=== PATIENT | male | born 1995 ===

== ENCOUNTER 2018-03-12 12:10 | Emergency (ER) | payer BC, OTHER, SELFPAY ==
[2018-03-12] MEDS ORDERED: Ibuprofen 800 MG TAB ONE (12:36)
== END 2018-03-12 12:56 | disposition home or self-care (01) ==
LOC: ERS 12:10
DX: S09.90XA Unspecified injury of head, initial encounter (principal); W50.0XXA Accidental hit or strike by another person, initial encounter
CPT/HCPCS: 99283